=== PATIENT | male | born 1960 | race Caucasian/White ===

== ENCOUNTER 2018-10-21 07:06 | Day surgery (SDC) | payer OTHER, SELFPAY ==
--- NOTE | 2018-10-13 02:35 | HP_ITS ---
Intake Vital Signs 10/13/18 Height 6 ft 10/13/18 Weight: 283 lb 10/13/18 Body Mass Index (BMI) 38.3 10/13/18 Blood Pressure 133/84 H 10/13/18 Blood Pressure Location Rt brachial 10/13/18 Respiratory Rate 18 10/13/18 Pulse Rate 74 10/13/18 Pulse Source Monitor 10/13/18 Temperature 98.7 F 10/13/18 Pulse Ox 97 10/13/18 Oxygen Delivery Method room air Intake Visit Reasons: Umbilical Hernia Loan Collector Required: No Is patient in pain?: No Allergies No Known Allergies Allergy (Unverified 10/13/18 14:20) Medications dulaglutide 1.5 mg/0.5 mL subcutaneous pen injector 1.5 mg SC QWEEK 10/13/18 [History Confirmed 10/13/18] estradiol-testosterone 2 mg-50 mg/mL intramuscular oil ea IM QMONTH 10/13/18 [History] losartan 100 mg tablet 100 mg PO DAILY 10/13/18 [History Confirmed 10/13/18] metformin 500 mg tablet 500 mg PO BID 10/13/18 [History Confirmed 10/13/18] metoprolol tartrate 25 mg tablet 25 mg PO BID 10/13/18 [History Confirmed 10/13/18] rosuvastatin 5 mg tablet 5 mg PO DAILY 10/13/18 [History Confirmed 10/13/18] [facility] Medical History Diabetes (Acute) High cholesterol (Acute) Umbilical hernia (Acute) Hypertension (Chronic) Surgical History History of knee surgery (Acute) History of laparoscopic appendectomy (Acute) History of repair of left rotator cuff (Acute) Family History Grandmother Arthritis Grandfather Colon cancer Mother Diabetes Father Hypertension High cholesterol Social History (Updated 10/13/18 @ 14:36 by Pato Vu MD) Smoking Status: Never smoker alcohol intake: current substance use type: does not use HPI HPI HPI: ELADIO GUO, is a 58 M who presents to the office today for HPI HPI Surgical H&P: Yes HPI: ELADIO GUO, is a 58 M who presents to the office today for evaluation for an umbilical bulge. Patient recently underwent a lap scopic appendectomy. He has noticed that the area at his umbilical area has gradually increased in size since the surgery. He is not having any pain at the present time. He has had no change in his bowel or bladder habits. ROS General General: No weight change, appetite, fatigue, colon cancer, breast cancer or weakness HEENT HEENT: No difficulty swallowing, eye injury, eye surgery, swollen glands or hoarseness Endo Endocrine: Yes diabetes mellitus; no thyroid disease, thyroid cancer, Hair loss, heat intolerance or cold intolerance Skin Skin: No rash or changing moles Breast Breast: No left breast lump, right breast lump, nipple discharge, breast pain, abnormal mammogram, abnormal US or breast enlargement Musc Musculoskeletal: No back problems, arthritis, rheumatoid arthritis, gout or joint pain Cardio Cardiovascular: Yes high blood pressure; no murmur, pacemaker, heart disease, atrial fibrillation, heart attack, heart stent, palpitations, shortness of breat with exertion or chest pain Psych Psychiatric: No depression, anxiety or hearing voices Resp Respiratory: No shortness of breath, No sleep apnea, No cough, No COPD, No asthma, No emphysema, No wheezing Gastro Gastrointestinal: No abdominal pain, No nausea or vomiting, No diarrhea, No constipation, No blood in stool, No acid reflux, No hemorrhoids, No ulcers, No gallbladder problem, No black,tarry stools Dontrell Hematologic: No blood thinners, No blood disorders, No bleeding, No anemia, No blood clots Neuro Neurologic: No system reviewed and no additional complaints, except as docu, No as per HPI, No abnormal walking, No abnormal hearing, No abnormal movements, No abnormal speech, No behavioral changes, No burning sensations, No confusion, No seizure-like activity, No unsteadiness, No dizziness, No localized weakness, No frequent falls, No headache(s), No lack of coordination, No loss of vision, No memory loss, No numbness, No other visual disturbances, No radiating pain, No restless legs, No sensory deficit, No fainting, No tingling, No tremor(s), No weakness, No other Exam Const General: no acute distress, well developed, well hydrated Orientation: oriented to person, oriented to place, oriented to time [facility] Head: normocephalic, atraumatic Ears: external ears normal Mouth: moist mucous membranes Eyes Sclera: sclerae normal Pupils: normal by confrontation Neck Neck: no lymphadenopathy noted Neck mass: No Thyroid: thyroid normal, symmetrical Chest Chest palpation & inspection: normal inspection of the chest Breast Palpation: No nipple discharge Resp Effort & Inspection: normal respiratory effort Auscultation: clear to auscultation bilaterally Percussion: percussion normal Cardio Rate: regular rate Rhythm: regular rhythm Heart Sounds: no murmurs GI Palpation: soft, no hepatosplenomegaly, no masses, tender Rectal Exam: other Other: Patient has a obvious incisional hernia at his umbilicus. Rectal exam deferred. Extrem General: normal to inspection, no clubbing, cyanosis or edema Assessment & Plan Problems 1. Incisional hernia, without obstruction or gangrene K43.2; K43.91 Plan My plan is to perform an incisional hernia repair with mesh. The planned surgical procedure was discussed extensively with the patient. The risks, benefits, anticipated outcomes and possible complication were mentioned. The patient understands that all hernia repair surgery has a chance of recurrence and/or chronic post-operative pain. My staff has also explained the procedure in understandable terms and the patient was given the option to take printed material concerning the planned procedure. The patient had the opportunity to ask questions concerning the planned procedure. The patient freely consents to the planned procedure. Coding Level of Care Code Off vis,new,level 3 Diagnoses Incisional hernia, without obstruction or gangrene K43.2; K43.91 ??Obstruction and gangrene presence: without obstruction or gangrene 10/13/18 1436 <Electronically signed by Pato gómez MD> Date _ Pato Vu MD I have re-examined the patient. There are no clinical changes since date of exam.
[2018-10-13 14:19] VITALS: BMI 38.3
--- NOTE | 2018-10-21 07:15 | EKG12_ITS ---
Test Reason : PREOP Blood Pressure : / mmHG Vent. Rate : 069 BPM Atrial Rate : 069 BPM P-R Int : 182 ms QRS Dur : 080 ms QT Int : 380 ms P-R-T Axes : 065 035 062 degrees QTc Int : 407 ms Normal sinus rhythm Normal ECG No previous ECGs available Confirmed by AIDA WARNER ([id number]), digital editor LUIS EDUARDO JIMENEZ ([id number] on 10/27/2018 3:33:41 PM Referred By: Aida Vu Confirmed By:AIDA WARNER
[2018-10-21 07:28] VITALS: BP 125/89; PULSE 66; RESP 18; TEMP 36.2; O2SAT 96; BMI 37.8
[2018-10-21 07:48] LABS: Anion Gap 8 (5-15); BUN 16 mg/dL (7-18); BUN/Creat Ratio 12.7 RATIO (10-20); Calcium,Total 9.1 mg/dL (8.5-10.1); Chloride 106 mmol/L (98-107); Creatinine, Serum 1.26 mg/dL (0.70-1.30); EST Glomerular Filtration Rate 62 mL/min (>60); Est Glom Filt Rate - Afr Amer 75 mL/min (>60); Estimated Creatinine Clearance 68.43 ml/min; Glucose 134 mg/dL (74-106); Potassium 4.3 mmol/L (3.5-5.1); Sodium Level 141 mmol/L (136-145)
[2018-10-21 08:26] LABS: Bedside Glucose 143 mg/dL (70-110)
[2018-10-21 08:58] LABS: Hemoglobin A1c 6.7 % (4.2-6.3)
[2018-10-21] MEDS: Cefazolin 2 GM in 0.9% Normal Saline 100 ML IV (09:02)
--- NOTE | 2018-10-21 09:05 | PCM.OPRPT ---
Problem List (1) Incisional hernia Status: Acute Qualifiers: Obstruction and gangrene presence: without obstruction or gangrene Qualified Code(s): K43.2 - Incisional hernia without obstruction or gangrene; K43.91 - Incisional hernia, without obstruction or gangrene Report of Operation Date of Procedure: 10/21/18 Pre-Operative Diagnosis: Incisional hernia Post-Operative Diagnosis: Same Surgery/Procedure Performed:: Incisional hernia repair with mesh Type of Anesthesia:: General Anesthesiologist: Warner Monsivais Estimated Blood Loss (mL): < 25 CC Fluids Replaced: 850 CC LR Description of Procedure: Patient was brought into the operating room. Placed in the supine position. Under excellent general trach intubation the abdomen was sterilely prepped and draped in usual fashion. Local was injected above the umbilicus and a curvilinear incision was made dissection was carried down to the hernia the hernia was dissected free from the umbilicus was placed back into its preperitoneal space a preperitoneal window was then created I was able to fashion a large ventral X hernia patch into the wound. I tacked it circumferentially to the fascia with #1 Nurolon's. I had excellent hemostasis. Exparel was injected. The wound was then brought back together with deep dermal stitches of 3-0 Vicryl in a running 4-0 Monocryl Steri-Strips were applied sterile dressings were applied and the patient tolerated the procedure well. - Admit VTE Documentation VTE Present on Admission: No VTE Mechan Device Prophylaxis: SCD's VTE Pharm Prophylaxis ordered?: No Reason prophylaxis not ordered:: Treatment Not Indicated
--- NOTE | 2018-10-21 09:06 | DCINST_ITS ---
Discharge Diet: Light diet - advance as tolerated Discharge Activity: Return to Normal Activity, May Drive - when you are no longer taking narcotic pain medications., May Shower - with the bandage in place 1-2 days after surgery. Lifting Restrictions: 20 pounds for 8 weeks. Additional Activity Instructions:: Climbing stairs is fine, walking is encouraged. Sitting in bed may be uncomfortable. Sitting up using your lateral muscles (sitting up sideways) is usually more comfortable. Do not drive, work heavy equipment of sign legal documents for 24 hours. If your hernia repair was an ingunial repair, you may have scrotal swelling, an ice pack and/or athletic support can provide more comfort. Pain medications may cause nausea, you should typically eat light foods as you take your pain medications. Pain medications may also cause constipation. If you have difficulty with this, discuss with your doctor. Call your doctor if your incision/area has: Continuous Slow Oozing, Sudden Increased Bleeding, Increased Pain/ Swelling, Increased Redness, Foul Smelling Discharge Call your doctor if you observe: Fever of 101 or Higher Suture Line Care: Avoid Pulling/Pushing, Avoid Pinching/Bending Additional Dressing/Incision Instructions:: Leave the operative bandage on for 2-3 days. When you remove the bandage, leave the steri-strips on place until your follow up appointment or they fall off. Allergies/Adverse Reactions: Allergies No Known Allergies Allergy (Unverified 10/13/18 14:20) Medications to take at Discharge dulaglutide 1.5 mg/0.5 mL subcutaneous pen injector 1.5 mg SC QWEEK 10/13/18 estradiol-testosterone 2 mg-50 mg/mL intramuscular oil 1 ea IM QMONTH 10/13/18 losartan 100 mg tablet 100 mg PO DAILY 10/13/18 metformin 500 mg tablet 500 mg PO BID 10/13/18 metoprolol tartrate 25 mg tablet 25 mg PO BID 10/13/18 rosuvastatin 5 mg tablet 5 mg PO DAILY 10/13/18 Oxycodone HCl/Acetaminophen [Percocet 5/325] 1 - 2 tab PO Q4H PRN PRN 6 Days #30 tab 10/21/18 The following prescriptions were given: Oxycodone HCl/Acetaminophen [Percocet 5/325] 1 - 2 tab PO Q4H PRN PRN 6 Days #30 tab PRN Reason: Pain Prescription Printed Primary Care Physician: Annamarie Camargo, [employer]LECT[employer]ICAL [employer]SMISSION ENGINEER-C [Primary Care Provider] - Test Results: Test results from this visit will be discussed in further detail at your follow- up appointment, if applicable. Please Follow Up With: Pato Vu MD - [phone] When: Plan to have a follow up appointment in 7 days. Call to schedule.
[2018-10-21] MEDS: BUPIVACAINE LIPOSOME/PF 20 ML VIAL OPERA.SITE (09:37)
[2018-10-21 09:55] VITALS: BP 125/89; BP 136/88; PULSE 79; RESP 16; TEMP 36.2; O2SAT 92
[2018-10-21 10:00] VITALS: BP 118/75; BP 125/89; PULSE 74; RESP 20; O2SAT 92
[2018-10-21 10:15] VITALS: BP 125/89; BP 126/88; PULSE 78; RESP 16; TEMP 36.2; O2SAT 97
[2018-10-21 10:36] LABS: Bedside Glucose 120 mg/dL (70-110)
[2018-10-21 10:55] VITALS: BP 117/83; BP 125/89; PULSE 62; RESP 16; TEMP 36.5; O2SAT 95
== END 2018-10-21 11:02 | disposition home or self-care (01) ==
LOC: SDC 07:08 → AC 07:08
PROVIDERS: Anesthesiology; Family Provider Nurse Practitioner; PCP Nurse Practitioner; Referring Provider Surgery; Visit Provider Surgery
PROC: (CPT 49560; principal; 2018-10-21 08:45)
DX: K43.2 Incisional hernia without obstruction or gangrene (principal); E11.9 Type 2 diabetes mellitus without complications; I10 Essential (primary) hypertension; E78.00 Pure hypercholesterolemia, unspecified; Z79.84 Long term (current) use of oral hypoglycemic drugs; Z79.899 Other long term (current) drug therapy; Z85.828 Personal history of other malignant neoplasm of skin
CPT/HCPCS: 49560; 49568; 80048; 82962; 83036; 93005; J7120; C1781; J2405; J3490

== ENCOUNTER → 2019-05-03 09:58 | Outpatient (CLI) | payer OTHER, SELFPAY ==
[2019-05-03 09:31] VITALS: BMI 37.8
[2019-05-04 16:08] LABS: Endomysial Antibody IgA Negative (Negative)
[2019-05-04 16:54] LABS: Immunoglobulin A 206 mg/dL (90-386); t-Transglutaminase IgA <2 U/mL (0-3)
== END ==
PROVIDERS: PCP Nurse Practitioner; Referring Provider Surgery; Visit Provider Surgery
DX: R19.7 Diarrhea, unspecified (principal)
CPT/HCPCS: 36415; 82784; 83516; 86255

== ENCOUNTER 2019-05-27 05:46 | Day surgery (SDC) | payer OTHER, SELFPAY ==
[2019-05-03 09:31] VITALS: BMI 37.8
--- NOTE | 2019-05-03 10:09 | HP_ITS ---
Intake Vital Signs 05/03/19 BMI 37.8 05/03/19 Height 6 ft 05/03/19 Weight: 298 lb 05/03/19 BMI 40.4 05/03/19 BP 138/89 H 05/03/19 Blood Pressure Location Rt brachial 05/03/19 Position Sitting 05/03/19 Respiration 18 05/03/19 Pulse 71 05/03/19 Pulse Source Monitor 05/03/19 Temp 98.5 F 05/03/19 Temp Source Oral 05/03/19 Pulse Oximetry (%) 98 05/03/19 Oxygen Delivery Method room air Intake Visit Reasons: Bloating/diarrhea, gallbladder sludge Chief Complaint: bloating/diarrhea/gallbladder sludge Sr. Payroll Processor Required: No Is patient in pain?: No Allergies No Known Allergies Allergy (Verified 05/03/19 09:30) Medications dulaglutide 1.5 mg/0.5 mL subcutaneous pen injector 1.5 mg SC QWEEK 10/13/18 [History Confirmed 05/03/19] losartan 100 mg tablet 100 mg PO DAILY 10/13/18 [History Confirmed 05/03/19] metformin 500 mg tablet 500 mg PO BID 10/13/18 [History Confirmed 05/03/19] metoprolol tartrate 25 mg tablet 25 mg PO BID 10/13/18 [History Confirmed 05/03/19] rosuvastatin 5 mg tablet 5 mg PO DAILY 10/13/18 [History Confirmed 05/03/19] omeprazole 40 mg capsule,delayed release 40 mg PO DAILY 05/03/19 [History Confirmed 05/03/19] [facility] Medical History Incisional hernia (Acute) Acid reflux (Acute) Arthritis (Acute) Diarrhea (Acute) Diabetes (Acute) High cholesterol (Acute) Umbilical hernia (Acute) Hypertension (Chronic) Surgical History History of incisional hernia repair (Acute) History of knee surgery (Acute) History of laparoscopic appendectomy (Acute) History of repair of left rotator cuff (Acute) Family History Grandmother Arthritis Grandfather Colon cancer Mother Diabetes Father Hypertension High cholesterol Sister Arthritis Diabetes Social History (Updated 05/03/19 @ 10:09 by Pato Vu MD) Smoking Status: Never smoker alcohol intake: current substance use type: does not use HPI HPI HPI: ELADIO GUO, is a 58 M who presents to the office today for HPI HPI Surgical H&P: Yes HPI: ELADIO GUO, is a 58 M who presents to the office today for Evaluation of gallbladder sludge. Patient states that over the last year he has had increasing burning with abdominal bloating diarrhea and eructation. Patient states he has had one episode where he drink 2 large beers experience some significant epigastric pain followed by an episode of foul-smelling burping which was also followed by diarrhea and then lately marlene colored stools both loose and solid forms. The patient does not have classic symptoms of right upper quadrant abdominal pain with burning into the back. Patient has had upper scope with a biopsy of the Stomach which showed no organisms biopsies of the distal esophagus which showed no intestinal metaplasia and a duodenal biopsy which showed some increasing lymphocytes. ROS General General: No weight change, appetite, fatigue, colon cancer, breast cancer or weakness HEENT HEENT: No difficulty swallowing, eye injury, eye surgery, swollen glands or hoarseness Endo Endocrine: Yes diabetes mellitus; no thyroid disease, thyroid cancer, Hair loss, heat intolerance or cold intolerance Skin Skin: No rash or changing moles Breast Breast: No left breast lump, right breast lump, nipple discharge, breast pain, abnormal mammogram, abnormal US or breast enlargement Musc Musculoskeletal: Yes arthritis; no back problems, rheumatoid arthritis, gout or joint pain Cardio Cardiovascular: Yes high blood pressure; no murmur, pacemaker, heart disease, atrial fibrillation, heart attack, heart stent, palpitations, shortness of breat with exertion or chest pain Psych Psychiatric: No depression, anxiety or hearing voices Resp Respiratory: No shortness of breath, No sleep apnea, No cough, No COPD, No asthma, No emphysema, No wheezing Gastro Gastrointestinal: No abdominal pain, No nausea or vomiting, Yes diarrhea, No constipation, No blood in stool, Yes acid reflux, No hemorrhoids, No ulcers, No gallbladder problem, No black,tarry stools Dontrell Hematologic: No blood thinners, No blood disorders, No bleeding, No anemia, No blood clots Neuro Neurologic: No system reviewed and no additional complaints, except as docu, No as per HPI, No abnormal walking, No abnormal hearing, No abnormal movements, No abnormal speech, No behavioral changes, No burning sensations, No confusion, No seizure-like activity, No unsteadiness, No dizziness, No localized weakness, No frequent falls, No headache(s), No lack of coordination, No loss of vision, No memory loss, Yes numbness, No other visual disturbances, No radiating pain, No restless legs, No sensory deficit, No fainting, Yes tingling, No tremor(s), No weakness, No other Exam Const General: no acute distress, well developed, well hydrated Orientation: oriented to person, oriented to place, oriented to time [facility] Head: normocephalic, atraumatic Ears: external ears normal Mouth: moist mucous membranes Eyes Sclera: sclerae normal Pupils: normal by confrontation Neck Neck: no lymphadenopathy noted Neck mass: No Thyroid: thyroid normal, symmetrical Chest Chest palpation & inspection: normal inspection of the chest Breast Palpation: No nipple discharge Resp Effort & Inspection: normal respiratory effort Auscultation: clear to auscultation bilaterally Percussion: percussion normal Cardio Rate: regular rate Rhythm: regular rhythm Heart Sounds: no murmurs GI Inspection: obesity Palpation: soft, no hepatosplenomegaly, no masses, nontender Rectal Exam: other Other: Rectal exam deferred. Extrem General: normal to inspection, no clubbing, cyanosis or edema Assessment & Plan Problems 1. Gallbladder sludge K82.8 2. Diarrhea, unspecified type R19.7 Plan Reviewed the anatomy with the patient and discussed the procedure: laparoscopic cholecystectomy with possible cholangiograms, possible open. Review risks including but not limited to bleeding, infection, hernia, bile leak, retained gallstones requiring another procedure ERCP- Endoscopic Retrograde Cholangiopancreatography, injury to another organ (bile ducts, common bile duct, small bowel, etc.) and conversion to an open procedure. All questions were answered. We will need to use a Visiport to gain access into his abdominal area. He has had a previous umbilical hernia repair by myself. Prior to this procedure we are going to obtain celiac markers to make sure that he does not have celiac disease. If these are negative then we will proceed with a laparoscopic cholecystectomy. Orders Orders: Celiac Disease Profile Today R19.7 Coding Level of Care Code Off vis,est,level 3 Diagnoses Gallbladder sludge K82.8 Diarrhea, unspecified type R19.7 ??Diarrhea type: unspecified type 02/11/20 1009 <Electronically signed by Pato gómez MD> Date _ Pato Vu MD
[2019-05-27] VITALS (8 sets, daily range): BP systolic 112–142; BP diastolic 67–88; PULSE 64–73; RESP 15–18; TEMP 36.2–36.7; O2SAT 92–100; BMI 40.0
--- NOTE | 2019-05-27 | GALL_PTH ---
PATIENT: ELADIO GUO [place] [facility] [place][id number] AGE/SX: 58/M ROOM: RE05/27/[address]: Dr. Pato Vu MD : [id number] BED: DIS: 05/27/2019 SPEC #: [id number] RECD: 05/27/19 09:07 STATUS: DENISE URSZULA #: [id number] POOJA: 05/27/19 00:[address]: Pato Vu DEPT: SURGICAL PATHOLOGY RECD BY: Martínez Whalen Tissues: Gallbladder, NOS Procedures: Surgery Specimen Level III HEADER OPERATION: Laparoscopic cholecystectomy PRE-OP DIAGNOSIS: Gallbladder sludge K82.8, Diarrhea R19.7 TISSUE SUBMITTED: Gallbladder MICROSCOPIC DIAGNOSIS Gallbladder, cholecystectomy: Cholesterolosis and chronic cholecystitis. AM:sanam 05/30/19 MICROSCOPIC DESCRIPTION Slides are reviewed. GROSS DESCRIPTION Received is one container labeled with the patient's name and designated gallbladder. The specimen consists of a gallbladder measuring 8.5 cm in length and up to 4 cm in diameter. The external surface is pink-chun, smooth and glistening for the most part. Focally it is granular, hemorrhagic and contains cautery artifact. The gallbladder contains green-yellow mucoid bile. No stones are identified in the container or in the gallbladder. The mucosa also shows several yellowish streaks consistent with cholesterolosis. The mucosa is bile-stained and without any mass lesions. The gallbladder wall measures up to 0.1 cm in thickness. Fence Maker sections from the gallbladder and the cystic duct are submitted in one cassette. / SJ:rg 05/27/19 TC:3 CPT: 23858
--- NOTE | 2019-05-27 05:58 | EKG12_ITS ---
Test Reason : PRE OP Blood Pressure : / mmHG Vent. Rate : 071 BPM Atrial Rate : 071 BPM P-R Int : 180 ms QRS Dur : 084 ms QT Int : 386 ms P-R-T Axes : 067 055 068 degrees QTc Int : 419 ms Normal sinus rhythm Normal ECG Confirmed by VASQUEZ GOODWIN, ADELAIDA ([id number]), department editor HANNAH DAVIS ([id number]) on 06/01/2019 10:09:46 AM Referred By: Pato Vu Confirmed By:ADELAIDA OVALLE MD
[2019-05-27] MEDS: Lactated Ringers 1,000 ML 100 ML IV ×2 (06:22→09:28)
[2019-05-27 06:37] LABS: Anion Gap 6 (5-15); BUN 18 mg/dL (7-18); BUN/Creat Ratio 16.1 RATIO (10-20); Calcium,Total 8.6 mg/dL (8.5-10.1); Chloride 109 mmol/L (98-107); Creatinine, Serum 1.12 mg/dL (0.70-1.30); EST Glomerular Filtration Rate 71 mL/min (>60); Est Glom Filt Rate - Afr Amer 86 mL/min (>60); Estimated Creatinine Clearance 76.98 ml/min; Glucose 166 mg/dL (74-106); Potassium 4.1 mmol/L (3.5-5.1); Sodium Level 140 mmol/L (136-145)
[2019-05-27 06:45] LABS: Bedside Glucose 173 mg/dL (70-110)
--- NOTE | 2019-05-27 07:00 | HP.PCM_ITS ---
History and Physical Date of Admission: 05/27/19 [facility] Medical Records Department [address] [place] [address] History and Physical 05/03/19 1009 MR#: [id number] Acct: [id number] Name: ELADIO GUO Rep #:[id number] : 1960 58 From: Pato Vu MD PCP: BENJA Walker Status:PRE SDC Location: SDC Intake Vital Signs 05/03/19 BMI 37.8 05/03/19 Height 6 ft 05/03/19 Weight: 298 lb 05/03/19 BMI 40.4 05/03/19 BP 138/89 H 05/03/19 Blood Pressure Location Rt brachial 05/03/19 Position Sitting 05/03/19 Respiration 18 05/03/19 Pulse 71 05/03/19 Pulse Source Monitor 05/03/19 Temp 98.5 F 05/03/19 Temp Source Oral 05/03/19 Pulse Oximetry (%) 98 05/03/19 Oxygen Delivery Method room air Intake Visit Reasons: Bloating/diarrhea, gallbladder sludge Chief Complaint: bloating/diarrhea/gallbladder sludge Bronc Breaker Required: No Is patient in pain?: No Allergies No Known Allergies Allergy (Verified 05/03/19 09:30) Medications dulaglutide 1.5 mg/0.5 mL subcutaneous pen injector 1.5 mg SC QWEEK 10/13/18 [History Confirmed 05/03/19] losartan 100 mg tablet 100 mg PO DAILY 10/13/18 [History Confirmed 05/03/19] metformin 500 mg tablet 500 mg PO BID 10/13/18 [History Confirmed 05/03/19] metoprolol tartrate 25 mg tablet 25 mg PO BID 10/13/18 [History Confirmed 05/03/19] rosuvastatin 5 mg tablet 5 mg PO DAILY 10/13/18 [History Confirmed 05/03/19] omeprazole 40 mg capsule,delayed release 40 mg PO DAILY 05/03/19 [History Confirmed 05/03/19] [facility] Medical History Incisional hernia (Acute) Acid reflux (Acute) Arthritis (Acute) Diarrhea (Acute) Diabetes (Acute) High cholesterol (Acute) Umbilical hernia (Acute) Hypertension (Chronic) Surgical History History of incisional hernia repair (Acute) History of knee surgery (Acute) History of laparoscopic appendectomy (Acute) History of repair of left rotator cuff (Acute) Family History Grandmother Arthritis Grandfather Colon cancer Mother Diabetes Father Hypertension High cholesterol Sister Arthritis Diabetes Social History (Updated 05/03/19 @ 10:09 by Pato Vu MD) Smoking Status: Never smoker alcohol intake: current substance use type: does not use HPI HPI HPI: ELADIO GUO, is a 58 M who presents to the office today for HPI HPI Surgical H&P: Yes HPI: ELADIO GUO, is a 58 M who presents to the office today for Evaluation of gallbladder sludge. Patient states that over the last year he has had increasing burning with abdominal bloating diarrhea and eructation. Patient states he has had one episode where he drink 2 large beers experience some significant epigastric pain followed by an episode of foul-smelling burping which was also followed by diarrhea and then lately marlene colored stools both loose and solid forms. The patient does not have classic symptoms of right upper quadrant abdominal pain with burning into the back. Patient has had upper scope with a biopsy of the Stomach which showed no organisms biopsies of the distal esophagus which showed no intestinal metaplasia and a duodenal biopsy which showed some increasing lymphocytes. ROS General General: No weight change, appetite, fatigue, colon cancer, breast cancer or weakness HEENT HEENT: No difficulty swallowing, eye injury, eye surgery, swollen glands or hoarseness Endo Endocrine: Yes diabetes mellitus; no thyroid disease, thyroid cancer, Hair loss, heat intolerance or cold intolerance Skin Skin: No rash or changing moles Breast Breast: No left breast lump, right breast lump, nipple discharge, breast pain, abnormal mammogram, abnormal US or breast enlargement Musc Musculoskeletal: Yes arthritis; no back problems, rheumatoid arthritis, gout or joint pain Cardio Cardiovascular: Yes high blood pressure; no murmur, pacemaker, heart disease, atrial fibrillation, heart attack, heart stent, palpitations, shortness of breat with exertion or chest pain Psych Psychiatric: No depression, anxiety or hearing voices Resp Respiratory: No shortness of breath, No sleep apnea, No cough, No COPD, No asthma, No emphysema, No wheezing Gastro Gastrointestinal: No abdominal pain, No nausea or vomiting, Yes diarrhea, No constipation, No blood in stool, Yes acid reflux, No hemorrhoids, No ulcers, No gallbladder problem, No black,tarry stools Dontrell Hematologic: No blood thinners, No blood disorders, No bleeding, No anemia, No blood clots Neuro Neurologic: No system reviewed and no additional complaints, except as docu, No as per HPI, No abnormal walking, No abnormal hearing, No abnormal movements, No abnormal speech, No behavioral changes, No burning sensations, No confusion, No seizure-like activity, No unsteadiness, No dizziness, No localized weakness, No frequent falls, No headache(s), No lack of coordination, No loss of vision, No memory loss, Yes numbness, No other visual disturbances, No radiating pain, No restless legs, No sensory deficit, No fainting, Yes tingling, No tremor(s), No weakness, No other Exam Const General: no acute distress, well developed, well hydrated Orientation: oriented to person, oriented to place, oriented to time [facility] Head: normocephalic, atraumatic Ears: external ears normal Mouth: moist mucous membranes Eyes Sclera: sclerae normal Pupils: normal by confrontation Neck Neck: no lymphadenopathy noted Neck mass: No Thyroid: thyroid normal, symmetrical Chest Chest palpation & inspection: normal inspection of the chest Breast Palpation: No nipple discharge Resp Effort & Inspection: normal respiratory effort Auscultation: clear to auscultation bilaterally Percussion: percussion normal Cardio Rate: regular rate Rhythm: regular rhythm Heart Sounds: no murmurs GI Inspection: obesity Palpation: soft, no hepatosplenomegaly, no masses, nontender Rectal Exam: other Other: Rectal exam deferred. Extrem General: normal to inspection, no clubbing, cyanosis or edema Assessment & Plan Problems 1. Gallbladder sludge K82.8 2. Diarrhea, unspecified type R19.7 Plan Reviewed the anatomy with the patient and discussed the procedure: laparoscopic cholecystectomy with possible cholangiograms, possible open. Review risks including but not limited to bleeding, infection, hernia, bile leak, retained gallstones requiring another procedure ERCP- Endoscopic Retrograde Cholangiopancreatography, injury to another organ (bile ducts, common bile duct, small bowel, etc.) and conversion to an open procedure. All questions were answered. We will need to use a Visiport to gain access into his abdominal area. He has had a previous umbilical hernia repair by myself. Prior to this procedure we are going to obtain celiac markers to make sure that he does not have celiac disease. If these are negative then we will proceed with a laparoscopic cholecystectomy. Orders Orders: Celiac Disease Profile Today R19.7 Coding Level of Care Code Off vis,est,level 3 Diagnoses Gallbladder sludge K82.8 Diarrhea, unspecified type R19.7 ??Diarrhea type: unspecified type 05/03/19 1009 <Electronically signed by Pato gómez MD> Date _ Pato Vu MD 05/05/19 1036 <Electronically signed by Pato gómez MD> Date: Time: __ Pato Vu MD CC: PROCUREMENT SPECIALIST-C Annamarie Camargo; Pato Vu MD ~ Date Dictated: 05/03/19 100 Date Transcribed: 05/04/19 1549 Electrical Technology Instructor: REMBERTO Signed I have re-examined the patient. There are no clinical changes since date of e yeyo.
--- NOTE | 2019-05-27 07:02 | OP.PCM_ITS ---
Problem List (1) Gallbladder sludge Status: Acute (2) Diarrhea Status: Acute Qualifiers: Diarrhea type: unspecified type Qualified Code(s): R19.7 - Diarrhea, unspecified Report of Operation Date of Procedure: 05/27/19 Pre-Operative Diagnosis: Gallbladder sludge. Diarrhea Post-Operative Diagnosis: Same Surgery/Procedure Performed:: Laparoscopic cholecystectomy Type of Anesthesia:: General Anesthesiologist: Chinmay Cintron Specimen's removed: Gallbladder Estimated Blood Loss (mL): < 25 cc Fluids Replaced: 1200 cc LR Description of Procedure: Patient was brought into the operating room. Placed in the supine position. Under excellent general trach intubation the abdomen was sterilely prepped and draped in usual fashion. Local was injected in the right upper quadrant incision was made Visiport was used to gain access to the intra-abdominal cavity without injury to underlying structures. Abdomen was insufflated to 15 torr patient was placed in the head up and rotated to the left position. Patient had a previous ventral hernia repair just above his umbilicus and the mesh looked quite nice and I did put another trocar directly through that mesh so I put the 1012 trocar just to the left lateral aspect of it I injected local made an incision and the trocar went in without difficulty I placed a #5 subxiphoid port and inferior to this another #5 trocar both of these under direct visualization without injury to underlying structures. Fundus of the gallbladder was grasped retracted cephalad direction infundibulum was grasped retracted laterally I dissected out the cystic duct placed hemoclips proximally and distally and ligated the duct I dissected out the cystic artery placed hemoclips proximally distally and ligated the artery. Divide the p osterior branch of the cystic artery placed a Hemoclip on this I deliver the gallbladder from the gallbladder bed with use of electrocautery had no spillage of stones or sludge. Placed a specimen specimen bag and delivered through the umbilical port without difficulty irrigated the right upper quadrant used electrocautery for good pneumostasis and at the end I placed some Nakia in the base as well. I removed the 10/12 trocar close this with a GraNee needle of 0 Vicryl the other trochars were removed under direct visualization skin incisions were closed with subcuticular stitches of 4-0 Monocryl Steri-Strips were applied sterile dressings were applied and the patient tolerated the procedure well. - Admit VTE Documentation VTE Present on Admission: No VTE Mechan Device Prophylaxis: SCD's VTE Pharm Prophylaxis ordered?: No Reason prophylaxis not ordered:: Treatment Not Indicated
--- NOTE | 2019-05-27 07:03 | DCINST_ITS ---
Discharge Diet: Light diet - advance as tolerated Discharge Activity: May Not Drive - for 2-3 days or while taking narcotic pain medications., - - Do not drive, work heavy equipment or sign legal documents for 24 hours. May shower in (days): 1 - with the bandage in place. Additional Activity Instructions:: Pain medication may cause nausea. You should typically eat light foods as you take your pain medications. Pain medication may also cause constipation. If this is a problem for you, please discuss with your doctor. Call your doctor if your incision/area has: Continuous Slow Oozing, Sudden Increased Bleeding, Increased Pain/ Swelling, Increased Redness, Foul Smelling Discharge Call your doctor if you observe: Fever of 101 or Higher Suture Line Care: Avoid Pulling/Pushing, Avoid Pinching/Bending Additional Dressing/Incision Instructions:: Leave operative bandaids on for 2 days. When you remove dressing, leave Steri-Strips on until your follow-up appointment, or until the Steri-Strips fall off on their own. Allergies/Adverse Reactions: Allergies No Known Allergies Allergy (Verified 05/27/19 05:51) Medications to take at Discharge dulaglutide 1.5 mg/0.5 mL subcutaneous pen injector 1.5 mg SC FR 10/13/18 losartan 100 mg tablet 100 mg PO DAILY 10/13/18 metformin 500 mg tablet 500 mg PO BID 10/13/18 metoprolol tartrate 25 mg tablet 25 mg PO BID 10/13/18 rosuvastatin 5 mg tablet 5 mg PO DAILY 10/13/18 omeprazole 40 mg capsule,delayed release 40 mg PO DAILY 05/03/19 Oxycodone HCl/Acetaminophen [Percocet 5/325] 1 - 2 tablet PO Q4H PRN PRN 6 Days #30 tablet 05/27/19 The following prescriptions were given: Oxycodone HCl/Acetaminophen [Percocet 5/325] 1 - 2 tablet PO Q4H PRN PRN 6 Days #30 tablet PRN Reason: Pain Transmission Status: Received by [facility]/pharmacy #[id number] Orders to be completed after discharge: Hemoglobin A1c Time Frame: 05/27/19, Facility: [facility], Location: Laboratory Primary Care Physician: NIRALI KHAN [Other] Test Results: Test results from this visit will be discussed in further detail at your follow- up appointment, if applicable. Please Follow Up With: Jaclyn Santos PA-C - Please call [phone] to schedule an appointment. When: 7 days after your surgery.
[2019-05-27 07:15] LABS: Hemoglobin A1c 7.2 % (4.2-6.3)
[2019-05-27] MEDS: Bupivacaine Mpf 0.5% 30 ML VIAL (08:15)
[2019-05-27] MEDS: Acetaminophen 325 MG Tablet 650 MG PO (10:32)
[2019-05-27] MEDS: oxyCODONE 5 MG Tablet 10 MG PO (10:33)
== END 2019-05-27 11:29 | disposition home or self-care (01) ==
LOC: SDC 05:46 → AC 05:49
PROVIDERS: Anesthesiology; Referring Provider Surgery; Visit Provider Surgery
PROC: (CPT 47562; principal; 2019-05-27 07:10)
DX: K81.1 Chronic cholecystitis (principal); R19.7 Diarrhea, unspecified; I10 Essential (primary) hypertension; E11.9 Type 2 diabetes mellitus without complications; E78.00 Pure hypercholesterolemia, unspecified; K21.9 Gastro-esophageal reflux disease without esophagitis; Z79.84 Long term (current) use of oral hypoglycemic drugs; Z79.899 Other long term (current) drug therapy
CPT/HCPCS: 00790; 47562; 80048; 82962; 83036; 88304; 93005; J7120; J2405